=== PATIENT | female | born 1960 | race Caucasian/White ===

== ENCOUNTER 2022-04-07 15:13 | Inpatient (IN) ==
[2022-04-07] MEDS ORDERED: 0.9 % Sodium Chloride 1,000 ML IVC ONE (15:44)
[2022-04-07] MEDS ORDERED: Ondansetron 4 MG/2 ML VIAL IVP ONE (15:44)
[2022-04-07] MEDS ORDERED: Piperacillin/Tazobactam 3.375 GM in 0.9 % Sodium Chloride Mini Bag 100 ML IVPB ONE (15:44)
[2022-04-07] MEDS ORDERED: *HR* FentaNYL (PF) 100 MCG/2 ML VIAL IVP ONE (16:01)
[2022-04-07 17:26] LABS: Basophils # 0.1 K/mcL (0.0-0.2); Basophils % 0.2 %; Eosinophils % 0.1 %; Hematocrit 34.4 % (35.3-44.9); Hemoglobin 11.2 g/dL (11.5-15.4); Immature Granulocytes % 2.6 % (0-4); Lymphocytes % 4.8 %; Mean Corpuscular HGB Conc 32.6 g/dL (31.6-35.5); Mean Corpuscular Hemoglobin 26.9 pg (28.0-33.3); Mean Corpuscular Volume 82.5 fL (83.0-100.0); Mean Platelet Volume 9.2 fL (9.4-12.4); Monocytes % 4.8 %; Neutrophils # 18.7 K/mcL (1.6-8.9); Platelet Count 472 K/mcL (140-400); Red Blood Count 4.17 M/mcL (3.82-4.97); Red Cell Distribution Width 14.8 % (11.5-14.5); Segmented Neutrophils % 87.5 %; White Blood Count 21.4 K/mcL (4.3-11.1)
[2022-04-07 17:35] LABS: INR 1.3; Prothrombin Time 14.7 Seconds (9.4-12.1)
[2022-04-07] MEDS ORDERED: Iopamidol - 370 500 ML MLS IVP ONE (17:37)
[2022-04-07 17:38] LABS: Activated Partial Thrombo Time 28.4 Seconds (26.0-36.0)
[2022-04-07 17:43] LABS: Bacteria,Urine Few per hpf (None-Few); Bilirubin,Urine Negative (Negative); Blood,Urine Small (Negative); Clarity,Urine Ex.Turbid (Clear); Color,Urine Yellow (Yellow); Glucose,Urine (UA) 50 mg/dL (Normal); Hyaline Casts,Urine Many per lpf (None Seen); Ketones,Urine Negative (Negative); Leukocyte Esterase,Urine Large (Negative); Mucus,Urine Few per lpf (None-Few); Nitrite,Urine Negative (Negative); PH,Urine 5.5 pH Units (5.0-8.0); Protein,Urine 100 mg/dL (Neg-Trace); RBC,Urine 30-50 per hpf (0-3); Renal Epithelial Cells,Urine Few per hpf (None-Few); Specific Gravity,Urine 1.027 (1.010-1.025); Squamous Epithelial Cell,Urine Many per hpf (None-Few); Transitional Epi Cells,Urine Few per hpf (None-Few); WBC,Urine TNTC per hpf (0-3)
[2022-04-07 17:44] LABS: Albumin/Globulin Ratio 0.8 (1.1-2.2); Bilirubin,Indirect 0.4 mg/dL (0.0-1.0); Bilirubin,Total 0.4 mg/dL (0.3-1.0); Calcium 8.9 mg/dL (8.6-10.3); Globulin 3.9 g/dL (2.4-3.5); Total Protein 6.9 g/dL (6.4-8.9)
[2022-04-07] MEDS ORDERED: 0.9 % Sodium Chloride 1,000 ML IVC SCH (18:30)
[2022-04-07] MEDS ORDERED: Melatonin 3 MG TABLET PO PRN (19:58)
[2022-04-07] MEDS ORDERED: *HR* Promethazine 25 MG/ML VIAL IM PRN (19:58)
[2022-04-07] MEDS ORDERED: Ondansetron 4 MG/2 ML VIAL IVP PRN (19:58)
[2022-04-07] MEDS ORDERED: Naloxone 0.4 MG/ML INJ IVP PRN (19:58)
[2022-04-07] MEDS ORDERED: 0.9 % Sodium Chloride w KCl 20 MEQ/1,000 ML MLS IVC SCH (20:15)
[2022-04-08] MEDS: Piperacillin/Tazobactam 3.375 GM in 0.9 % Sodium Chloride Mini Bag 100 ML IVPB SCH ×3 (01:11→17:49)
[2022-04-08 08:07] LABS: Basophils # 0.1 K/mcL (0.0-0.2); Basophils % 0.3 %; Eosinophils # 0.1 K/mcL (0.0-0.6); Eosinophils % 0.5 %; Hematocrit 31.5 % (35.3-44.9); Hemoglobin 10.2 g/dL (11.5-15.4); Immature Granulocytes % 1.8 % (0-4); Lymphocytes # 1.3 K/mcL (0.6-4.6); Lymphocytes % 7.1 %; Mean Corpuscular HGB Conc 32.4 g/dL (31.6-35.5); Mean Corpuscular Hemoglobin 27.3 pg (28.0-33.3); Mean Corpuscular Volume 84.5 fL (83.0-100.0); Mean Platelet Volume 8.8 fL (9.4-12.4); Monocytes # 1.1 K/mcL (0.0-1.3); Monocytes % 5.9 %; Neutrophils # 15.6 K/mcL (1.6-8.9); Platelet Count 435 K/mcL (140-400); Red Blood Count 3.73 M/mcL (3.82-4.97); Red Cell Distribution Width 15.1 % (11.5-14.5); Segmented Neutrophils % 84.4 %; White Blood Count 18.4 K/mcL (4.3-11.1)
[2022-04-08 08:14] LABS: INR 1.4; Prothrombin Time 15.7 Seconds (9.4-12.1)
[2022-04-08 08:26] LABS: Calcium 8.4 mg/dL (8.6-10.3); Magnesium 1.8 mg/dL (1.6-2.6); Potassium 3.2 mEq/L (3.5-5.1)
[2022-04-08] MEDS: 0.9 % Sodium Chloride w KCl 20 MEQ/1,000 ML MLS IVC SCH (12:50)
[2022-04-08] MEDS ORDERED: 0.9 % Sodium Chloride 500 ML ONE (13:47)
[2022-04-08] MEDS ORDERED: *HR* FentaNYL (PF) 100 MCG/2 ML VIAL ONE (13:49)
[2022-04-08] MEDS ORDERED: *HR* Midazolam HCl 2 MG/2 ML VIAL ONE (13:50)
[2022-04-08] MEDS ORDERED: *HR* FentaNYL (PF) 100 MCG/2 ML VIAL IVP ONE (13:58)
[2022-04-08] MEDS ORDERED: *HR* Midazolam HCl 2 MG/2 ML VIAL IVP ONE (13:58)
[2022-04-08] MEDS ORDERED: Potassium Chloride Elixir 20 MEQ/15 ML UDC PO ONE (15:44)
[2022-04-09] MEDS: Piperacillin/Tazobactam 3.375 GM in 0.9 % Sodium Chloride Mini Bag 100 ML IVPB SCH ×4 (00:36→23:26)
[2022-04-09] MEDS: 0.9 % Sodium Chloride w KCl 20 MEQ/1,000 ML MLS IVC SCH (04:24)
[2022-04-09 07:44] LABS: Basophils # 0.1 K/mcL (0.0-0.2); Basophils % 0.4 %; Eosinophils # 0.1 K/mcL (0.0-0.6); Eosinophils % 0.7 %; Hematocrit 31.7 % (35.3-44.9); Hemoglobin 9.8 g/dL (11.5-15.4); Immature Granulocytes % 1.4 % (0-4); Lymphocytes # 1.2 K/mcL (0.6-4.6); Lymphocytes % 7.2 %; Mean Corpuscular HGB Conc 30.9 g/dL (31.6-35.5); Mean Corpuscular Hemoglobin 26.9 pg (28.0-33.3); Mean Corpuscular Volume 87.1 fL (83.0-100.0); Mean Platelet Volume 8.9 fL (9.4-12.4); Monocytes # 0.8 K/mcL (0.0-1.3); Monocytes % 4.9 %; Neutrophils # 14.2 K/mcL (1.6-8.9); Platelet Count 451 K/mcL (140-400); Red Blood Count 3.64 M/mcL (3.82-4.97); Red Cell Distribution Width 15.4 % (11.5-14.5); Segmented Neutrophils % 85.4 %; White Blood Count 16.6 K/mcL (4.3-11.1)
[2022-04-09 09:40] LABS: BUN/Creatinine Ratio 14 (6-26); Blood Urea Nitrogen 12 mg/dL (8-23); Calcium 8.2 mg/dL (8.6-10.3); Carbon Dioxide 27 mEq/L (23-29); Chloride 108 mEq/L (98-107); Glucose 94 mg/dL (70-105); Osmolality,Calculated 290 (280-300); Sodium 140 mEq/L (136-145); eGFR For African Americans > 60 (> 60); eGFR For Non-African Americans > 60 (> 60)
[2022-04-09] MEDS ORDERED: 0.9 % Sodium Chloride 1,000 ML IVC SCH (14:30)
[2022-04-10 03:15] LABS: Basophils # 0.1 K/mcL (0.0-0.2); Basophils % 0.4 %; Eosinophils # 0.2 K/mcL (0.0-0.6); Eosinophils % 1.6 %; Hematocrit 30.4 % (35.3-44.9); Hemoglobin 9.6 g/dL (11.5-15.4); Immature Granulocytes % 1.6 % (0-4); Lymphocytes # 1.3 K/mcL (0.6-4.6); Lymphocytes % 8.8 %; Mean Corpuscular HGB Conc 31.6 g/dL (31.6-35.5); Mean Corpuscular Hemoglobin 27.3 pg (28.0-33.3); Mean Corpuscular Volume 86.4 fL (83.0-100.0); Mean Platelet Volume 9.6 fL (9.4-12.4); Monocytes # 0.8 K/mcL (0.0-1.3); Monocytes % 5.3 %; Neutrophils # 12.3 K/mcL (1.6-8.9); Platelet Count 409 K/mcL (140-400); Red Blood Count 3.52 M/mcL (3.82-4.97); Red Cell Distribution Width 15.4 % (11.5-14.5); Segmented Neutrophils % 82.3 %; White Blood Count 14.9 K/mcL (4.3-11.1)
[2022-04-10 03:37] LABS: Magnesium 1.5 mg/dL (1.6-2.6); Phosphorous 2.2 mg/dL (2.7-4.5)
[2022-04-10 03:39] LABS: BUN/Creatinine Ratio 12 (6-26); Blood Urea Nitrogen 9 mg/dL (8-23); Calcium 7.9 mg/dL (8.6-10.3); Carbon Dioxide 26 mEq/L (23-29); Chloride 106 mEq/L (98-107); Glucose 120 mg/dL (70-105); Osmolality,Calculated 290 (280-300); Potassium 3.2 mEq/L (3.5-5.1); Sodium 140 mEq/L (136-145); eGFR For African Americans > 60 (> 60); eGFR For Non-African Americans > 60 (> 60)
[2022-04-10] MEDS: Levothyroxine 25 MCG TABLET PO SCH (05:24)
[2022-04-10] MEDS: Magnesium Oxide 400 MG TABLET PO SCH (08:25)
[2022-04-10] MEDS: Piperacillin/Tazobactam 3.375 GM in 0.9 % Sodium Chloride Mini Bag 100 ML IVPB SCH ×2 (08:26→15:41)
[2022-04-10] MEDS ORDERED: Potassium Phosphate 44 MEQ in 0.9 % Sodium Chloride 250 ML IVPB ONE (09:00)
[2022-04-11] MEDS ORDERED: 0.9 % Sodium Chloride Mini Bag 100 ML ONE (00:15)
[2022-04-11] MEDS: Piperacillin/Tazobactam 3.375 GM in 0.9 % Sodium Chloride Mini Bag 100 ML IVPB SCH ×3 (00:19→16:02)
[2022-04-11 01:34] LABS: Basophils % 0.4 %; Eosinophils # 0.2 K/mcL (0.0-0.6); Eosinophils % 2.1 %; Hematocrit 30.7 % (35.3-44.9); Hemoglobin 9.8 g/dL (11.5-15.4); Immature Granulocytes % 1.5 % (0-4); Lymphocytes # 1.5 K/mcL (0.6-4.6); Lymphocytes % 15.5 %; Mean Corpuscular HGB Conc 31.9 g/dL (31.6-35.5); Mean Corpuscular Hemoglobin 26.8 pg (28.0-33.3); Mean Corpuscular Volume 84.1 fL (83.0-100.0); Mean Platelet Volume 8.7 fL (9.4-12.4); Monocytes # 0.6 K/mcL (0.0-1.3); Monocytes % 6.1 %; Neutrophils # 7.3 K/mcL (1.6-8.9); Platelet Count 415 K/mcL (140-400); Red Blood Count 3.65 M/mcL (3.82-4.97); Red Cell Distribution Width 14.9 % (11.5-14.5); Segmented Neutrophils % 74.4 %; White Blood Count 9.9 K/mcL (4.3-11.1)
[2022-04-11 01:47] LABS: BUN/Creatinine Ratio 10 (6-26); Blood Urea Nitrogen 7 mg/dL (8-23); Carbon Dioxide 27 mEq/L (23-29); Chloride 107 mEq/L (98-107); Glucose 95 mg/dL (70-105); Magnesium 1.7 mg/dL (1.6-2.6); Osmolality,Calculated 288 (280-300); Phosphorous 3.7 mg/dL (2.7-4.5); Potassium 3.6 mEq/L (3.5-5.1); Sodium 140 mEq/L (136-145); eGFR For African Americans > 60 (> 60); eGFR For Non-African Americans > 60 (> 60)
[2022-04-11] MEDS: Levothyroxine 25 MCG TABLET PO SCH (05:37)
[2022-04-11] MEDS: Magnesium Oxide 400 MG TABLET PO SCH (08:17)
[2022-04-12] MEDS: Piperacillin/Tazobactam 3.375 GM in 0.9 % Sodium Chloride Mini Bag 100 ML IVPB SCH ×4 (00:04→23:47)
[2022-04-12 02:58] LABS: Basophils # 0.1 K/mcL (0.0-0.2); Basophils % 0.5 %; Eosinophils # 0.2 K/mcL (0.0-0.6); Eosinophils % 1.8 %; Hematocrit 31.4 % (35.3-44.9); Hemoglobin 9.9 g/dL (11.5-15.4); Immature Platelets 6.1 % (1.1-6.1); Lymphocytes # 1.5 K/mcL (0.6-4.6); Mean Corpuscular HGB Conc 31.5 g/dL (31.6-35.5); Mean Corpuscular Hemoglobin 26.7 pg (28.0-33.3); Mean Corpuscular Volume 84.6 fL (83.0-100.0); Mean Platelet Volume 10.5 fL (9.4-12.4); Monocytes # 0.7 K/mcL (0.0-1.3); Monocytes % 6.5 %; Platelet Count 332 K/mcL (140-400); Red Blood Count 3.71 M/mcL (3.82-4.97); Red Cell Distribution Width 14.8 % (11.5-14.5); Segmented Neutrophils % 76.2 %; White Blood Count 10.5 K/mcL (4.3-11.1)
[2022-04-12 03:19] LABS: BUN/Creatinine Ratio 9 (6-26); Blood Urea Nitrogen 6 mg/dL (8-23); Calcium 8.2 mg/dL (8.6-10.3); Carbon Dioxide 28 mEq/L (23-29); Chloride 104 mEq/L (98-107); Glucose 94 mg/dL (70-105); Osmolality,Calculated 285 (280-300); Potassium 3.6 mEq/L (3.5-5.1); Sodium 139 mEq/L (136-145); eGFR For African Americans > 60 (> 60); eGFR For Non-African Americans > 60 (> 60)
[2022-04-12] MEDS: Levothyroxine 25 MCG TABLET PO SCH (05:59)
[2022-04-12] MEDS: Magnesium Oxide 400 MG TABLET PO SCH (08:19)
[2022-04-12] MEDS: Acetaminophen 325 MG TABLET PO PRN ×2 (08:24→18:41)
[2022-04-12] MEDS ORDERED: Iopamidol - 370 500 ML MLS IVP ONE (09:09)
[2022-04-12 12:12] LABS: Saccharomyces cerevisiae IgA 5.4 Units (0.0-24.9)
[2022-04-12] MEDS ORDERED: Iopamidol - 370 500 ML MLS PO ONE (17:20)
[2022-04-13] MEDS: Levothyroxine 25 MCG TABLET PO SCH (05:31)
[2022-04-13 06:56] LABS: Basophils # 0.1 K/mcL (0.0-0.2); Basophils % 0.6 %; Eosinophils # 0.2 K/mcL (0.0-0.6); Eosinophils % 2.8 %; Hematocrit 30.3 % (35.3-44.9); Hemoglobin 9.7 g/dL (11.5-15.4); Immature Granulocytes % 0.9 % (0-4); Lymphocytes # 1.2 K/mcL (0.6-4.6); Lymphocytes % 13.8 %; Mean Corpuscular Volume 84.4 fL (83.0-100.0); Mean Platelet Volume 8.6 fL (9.4-12.4); Monocytes # 0.6 K/mcL (0.0-1.3); Monocytes % 7.4 %; Neutrophils # 6.3 K/mcL (1.6-8.9); Platelet Count 352 K/mcL (140-400); Red Blood Count 3.59 M/mcL (3.82-4.97); Red Cell Distribution Width 14.6 % (11.5-14.5); Segmented Neutrophils % 74.5 %; White Blood Count 8.5 K/mcL (4.3-11.1)
[2022-04-13 07:15] LABS: BUN/Creatinine Ratio 7 (6-26); Blood Urea Nitrogen 5 mg/dL (8-23); Calcium 8.3 mg/dL (8.6-10.3); Carbon Dioxide 30 mEq/L (23-29); Chloride 106 mEq/L (98-107); Glucose 87 mg/dL (70-105); Osmolality,Calculated 289 (280-300); Potassium 3.5 mEq/L (3.5-5.1); Sodium 141 mEq/L (136-145); eGFR For African Americans > 60 (> 60); eGFR For Non-African Americans > 60 (> 60)
[2022-04-13] MEDS: Piperacillin/Tazobactam 3.375 GM in 0.9 % Sodium Chloride Mini Bag 100 ML IVPB SCH ×2 (08:01→16:30)
[2022-04-13] MEDS: Magnesium Oxide 400 MG TABLET PO SCH (09:29)
[2022-04-14] MEDS: Piperacillin/Tazobactam 3.375 GM in 0.9 % Sodium Chloride Mini Bag 100 ML IVPB SCH ×3 (00:06→09:13)
[2022-04-14] MEDS: Acetaminophen 325 MG TABLET PO PRN (00:09)
[2022-04-14] MEDS: Levothyroxine 25 MCG TABLET PO SCH (05:35)
[2022-04-14] MEDS: Magnesium Oxide 400 MG TABLET PO SCH (08:21)
[2022-04-14 08:34] LABS: BUN/Creatinine Ratio 13 (6-26); Blood Urea Nitrogen 11 mg/dL (8-23); Calcium 8.7 mg/dL (8.6-10.3); Carbon Dioxide 30 mEq/L (23-29); Chloride 104 mEq/L (98-107); Glucose 100 mg/dL (70-105); Osmolality,Calculated 291 (280-300); Potassium 3.5 mEq/L (3.5-5.1); Sodium 141 mEq/L (136-145); eGFR For African Americans > 60 (> 60); eGFR For Non-African Americans > 60 (> 60)
[2022-04-14] MEDS ORDERED: cefTRIAXone 1,000 MG in 0.9 % Sodium Chloride 10 ML IVP SCH ×2 (10:00→12:00)
[2022-04-14] MEDS: metroNIDAZOLE 500 MG TABLET PO SCH ×3 (11:24→20:15)
[2022-04-14] MEDS: cefTRIAXone 2,000 MG in 0.9 % Sodium Chloride Mini Bag 100 ML IVPB SCH (11:31)
[2022-04-14] MEDS ORDERED: metroNIDAZOLE 500 MG TABLET PO SCH (15:00)
[2022-04-15] MEDS: Levothyroxine 25 MCG TABLET PO SCH (05:29)
[2022-04-15 10:07] VITALS: BP 101/66; PULSE 88; TEMP 97.8; O2SAT 95
[2022-04-15] MEDS: metroNIDAZOLE 500 MG TABLET PO SCH (10:16)
[2022-04-15] MEDS: cefTRIAXone 2,000 MG in 0.9 % Sodium Chloride Mini Bag 100 ML IVPB SCH (10:17)
[2022-04-15] MEDS: Magnesium Oxide 400 MG TABLET PO SCH (10:17)
== END 2022-04-15 13:06 | disposition home health service (06) | DRG 871 ==
LOC: EMEROOARM 15:13 → 3ANU 15:13 → SUATTDRO 18:35 → 3ANU 20:11 → SUATTDRO 04-09 18:33
PROVIDERS: ADMIT Internal Medicine; ATTEND Family Medicine